=== PATIENT | male | born 1965 | race Caucasian/White ===

== ENCOUNTER 2021-03-25 08:01 | Inpatient (IN) | payer OTHER ==
[2021-03-25] MEDS ORDERED: SODIUM CHLORIDE 0.9% 500 ML INFUS.BAG IV ONE ×2 (08:32→09:33)
[2021-03-25 08:56] LABS: HEMATOCRIT 51.6 % (35.4-49); HEMOGLOBIN 17.8 GM/dL (11.7-16.9); MCH 31.7 pg (25.7-33.7); MCHC 34.5 g/dl (32.0-35.9); MEAN CELL VOLUME 91.8 fl (80-96); MEAN PLT VOLUME 7.9 fl (7.5-11.1); PLATELET COUNT 230 10^3/uL (134-434); RBC 5.62 M/mm3 (4.00-5.60); RDW 13.1 % (11.9-15.9); WHITE BLOOD COUNT 14.3 K/mm3 (4.0-10.0)
[2021-03-25 09:17] LABS: CALCIUM 8.3 mg/dL (8.5-10.1)
[2021-03-25 09:18] LABS: ALBUMIN 3.7 g/dl (3.4-5.0); BLOOD UREA NITROGEN 45.7 mg/dL (7-18); MAGNESIUM 1.9 mg/dL (1.8-2.4)
[2021-03-25 09:21] LABS: CREATININE 3.5 mg/dL (0.55-1.3)
[2021-03-25 09:23] LABS: BILIRUBIN,TOTAL 0.8 mg/dL (0.2-1); TOT PROT 8.6 g/dl (6.4-8.2)
[2021-03-25 11:04] LABS: ANISOCYTOSIS 1+; MACROCYTOSIS 0; PLATELET ESTIMATE NORMAL; TEAR DROP CELLS 1+
[2021-03-25 11:57] LABS: EPI CELLS 14 /uL (0-25.1); HYALINE CASTS 13 /uL (0-3.1); PH,URINE 5.5 (5.0-8.0); URINE APPEARANCE CLEAR; URINE BACTERIA 11 /uL (0-1359); URINE BILIRUBIN NEGATIVE (NEGATIVE); URINE COLOR YELLOW; URINE GLUCOSE (UA) NEGATIVE (NEGATIVE); URINE KETONE NEGATIVE (NEGATIVE); URINE LEUK ESTERASE NEGATIVE (NEGATIVE); URINE NITRITE NEGATIVE (NEGATIVE); URINE PROTEIN 1+ (NEGATIVE); URINE RBC 21 /uL (0-23.9); URINE UROBILINOGEN 0.2 mg/dL (0.2-1.0); URINE WBC 12 /uL (0-25.8)
[2021-03-25] MEDS ORDERED: SODIUM CHLORIDE 500 ML IV STA (12:09)
[2021-03-25] MEDS ORDERED: SODIUM CHLORIDE 1,000 ML IV STA (12:23)
[2021-03-25] MEDS ORDERED: ONDANSETRON 4 MG/2 ML VIAL IVPUSH PRN (12:39)
[2021-03-25] MEDS: SODIUM CHLORIDE 1,000 ML IV SCH ×2 (13:10→19:56)
[2021-03-25] MEDS ORDERED: HEPARIN NA (PORCINE) 5,000 UNITS/ML 1ML VIAL ONE (15:02)
[2021-03-25] MEDS: HEPARIN NA (PORCINE) 5,000 UNITS/ML 1ML VIAL SQ SCH ×2 (15:06→21:10)
[2021-03-25 15:50] VITALS: BMI 28.8
[2021-03-25 17:50] LABS: HEMOGLOBIN 15.3 GM/dL (11.7-16.9); MCH 32.6 pg (25.7-33.7); MCHC 35.6 g/dl (32.0-35.9); MEAN CELL VOLUME 91.7 fl (80-96); MEAN PLT VOLUME 8.5 fl (7.5-11.1); PLATELET COUNT 190 10^3/uL (134-434); RBC 4.68 M/mm3 (4.00-5.60); WHITE BLOOD COUNT 9.3 K/mm3 (4.0-10.0)
[2021-03-25 18:17] LABS: BLOOD UREA NITROGEN 32.9 mg/dL (7-18); CALCIUM 7.5 mg/dL (8.5-10.1)
[2021-03-25 18:21] LABS: CREATININE 1.6 mg/dL (0.55-1.3)
[2021-03-25] MEDS ORDERED: POTASSIUM CHLORIDE ORAL LIQUID 20 MEQ/15 ML PO ONE (18:39)
[2021-03-25] MEDS: ACETAMINOPHEN 325 MG TABLET (FP) PO PRN (19:55)
[2021-03-25] MEDS ORDERED: LOPERAMIDE HCL 2 MG CAPSULE PO ONE (20:38)
[2021-03-26] MEDS: ACETAMINOPHEN 325 MG TABLET (FP) PO PRN ×2 (05:34→20:49)
[2021-03-26] MEDS: SODIUM CHLORIDE 1,000 ML IV SCH ×3 (06:24→23:02)
[2021-03-26] MEDS: HEPARIN NA (PORCINE) 5,000 UNITS/ML 1ML VIAL SQ SCH ×2 (06:24→14:28)
[2021-03-26 06:49] LABS: ALBUMIN 3.1 g/dl (3.4-5.0); BLOOD UREA NITROGEN 18.2 mg/dL (7-18); CALCIUM 8.1 mg/dL (8.5-10.1); MAGNESIUM 1.9 mg/dL (1.8-2.4)
[2021-03-26 06:52] LABS: CREATININE 1.1 mg/dL (0.55-1.3); PHOSPHOROUS 1.5 mg/dL (2.5-4.9)
[2021-03-26 06:54] LABS: BILIRUBIN,TOTAL 1.3 mg/dL (0.2-1)
[2021-03-26 06:56] LABS: TOT PROT 7.5 g/dl (6.4-8.2)
[2021-03-26 07:24] LABS: HEMATOCRIT 46.9 % (35.4-49); HEMOGLOBIN 16.7 GM/dL (11.7-16.9); MCH 32.5 pg (25.7-33.7); MCHC 35.6 g/dl (32.0-35.9); MEAN CELL VOLUME 91.4 fl (80-96); MEAN PLT VOLUME 8.7 fl (7.5-11.1); PLATELET COUNT 175 10^3/uL (134-434); RBC 5.13 M/mm3 (4.00-5.60); RDW 13.3 % (11.9-15.9); WHITE BLOOD COUNT 8.4 K/mm3 (4.0-10.0)
[2021-03-26] MEDS ORDERED: NAPH,MB-DB/K PH,MBDB POWDER PACKET PO SCH (07:30)
[2021-03-26 07:43] LABS: HIV INTERPRETATION NEGATIVE (NEGATIVE)
[2021-03-26] MEDS ORDERED: POTASSIUM PHOSPHATE 30 MM in SODIUM CHLORIDE 500 ML IVPB ONE (10:00)
[2021-03-26 14:57] LABS: ANISOCYTOSIS 1+; MACROCYTOSIS 0; OVALOCYTE 1+; PLATELET ESTIMATE NORMAL
[2021-03-26] MEDS: MELATONIN 5 MG TABLETS PO PRN (20:49)
[2021-03-27 10:01] LABS: HEMATOCRIT 41.1 % (35.4-49); HEMOGLOBIN 14.8 GM/dL (11.7-16.9); MCH 32.7 pg (25.7-33.7); MEAN CELL VOLUME 91.1 fl (80-96); MEAN PLT VOLUME 8.2 fl (7.5-11.1); PLATELET COUNT 162 10^3/uL (134-434); RBC 4.51 M/mm3 (4.00-5.60); RDW 13.2 % (11.9-15.9); WHITE BLOOD COUNT 10.1 K/mm3 (4.0-10.0)
[2021-03-27 10:22] LABS: CHLORIDE 108 mmol/L (98-107); SODIUM 138 mmol/L (136-145)
[2021-03-27 10:25] LABS: ANION GAP 6 MMOL/L (8-16); BLOOD UREA NITROGEN 11.5 mg/dL (7-18); CALCIUM 7.5 mg/dL (8.5-10.1); CO2 23 mmol/L (21-32); GLUCOSE,RANDOM 131 mg/dL (74-106)
[2021-03-27 10:28] LABS: CREATININE 0.8 mg/dL (0.55-1.3)
[2021-03-27 10:43] LABS: ANISOCYTOSIS 1+; MACROCYTOSIS 0; PLATELET ESTIMATE NORMAL
[2021-03-27 10:50] LABS: PHOSPHOROUS 1.1 mg/dL (2.5-4.9)
[2021-03-27] MEDS: ACETAMINOPHEN 325 MG TABLET (FP) PO PRN ×2 (11:48→22:17)
[2021-03-27] MEDS ORDERED: POTASSIUM PHOSPHATE 30 MM in SODIUM CHLORIDE 500 ML IVPB ONE (12:00)
[2021-03-27] MEDS: SODIUM CHLORIDE 1,000 ML IV SCH ×2 (12:15→21:20)
[2021-03-27] MEDS: MELATONIN 5 MG TABLETS PO PRN (21:20)
[2021-03-28] MEDS: SODIUM CHLORIDE 1,000 ML IV SCH ×4 (06:29→19:30)
[2021-03-28 08:04] LABS: HEMATOCRIT 42.6 % (35.4-49); HEMOGLOBIN 15.1 GM/dL (11.7-16.9); MCH 32.4 pg (25.7-33.7); MCHC 35.4 g/dl (32.0-35.9); MEAN CELL VOLUME 91.7 fl (80-96); MEAN PLT VOLUME 8.7 fl (7.5-11.1); PLATELET COUNT 166 10^3/uL (134-434); RBC 4.64 M/mm3 (4.00-5.60); RDW 13.6 % (11.9-15.9); WHITE BLOOD COUNT 11.6 K/mm3 (4.0-10.0)
[2021-03-28 08:21] LABS: BLOOD UREA NITROGEN 8.7 mg/dL (7-18); CALCIUM 7.7 mg/dL (8.5-10.1)
[2021-03-28 08:24] LABS: CREATININE 0.7 mg/dL (0.55-1.3); PHOSPHOROUS 2.4 mg/dL (2.5-4.9)
[2021-03-28] MEDS ORDERED: POTASSIUM PHOSPHATE 30 MM in SODIUM CHLORIDE 500 ML IVPB ONE ×2 (10:00→12:00)
[2021-03-28] MEDS ORDERED: POTASSIUM CHLORIDE TABS 20 MEQ TABLET.ER (FP) PO ONE (11:30)
[2021-03-28] MEDS ORDERED: NAPH,MB-DB/K PH,MBDB POWDER PACKET PO ONE (13:00)
[2021-03-28] MEDS: ACETAMINOPHEN 325 MG TABLET (FP) PO PRN (21:49)
[2021-03-28] MEDS: MELATONIN 5 MG TABLETS PO PRN (21:50)
[2021-03-29 01:28] VITALS: TEMP 98.8
[2021-03-29] MEDS: SODIUM CHLORIDE 1,000 ML IV SCH (02:40)
[2021-03-29 07:42] VITALS: BP 134/72; PULSE 81
[2021-03-29 08:23] LABS: HEMATOCRIT 37.8 % (35.4-49); HEMOGLOBIN 13.3 GM/dL (11.7-16.9); MCH 32.5 pg (25.7-33.7); MCHC 35.1 g/dl (32.0-35.9); MEAN CELL VOLUME 92.4 fl (80-96); MEAN PLT VOLUME 8.7 fl (7.5-11.1); PLATELET COUNT 175 10^3/uL (134-434); RBC 4.09 M/mm3 (4.00-5.60); RDW 13.2 % (11.9-15.9); WHITE BLOOD COUNT 10.2 K/mm3 (4.0-10.0)
[2021-03-29 08:31] LABS: CALCIUM 7.5 mg/dL (8.5-10.1)
[2021-03-29 08:32] LABS: BLOOD UREA NITROGEN 7.7 mg/dL (7-18); MAGNESIUM 1.9 mg/dL (1.8-2.4)
[2021-03-29 08:35] LABS: CREATININE 0.6 mg/dL (0.55-1.3); PHOSPHOROUS 2.6 mg/dL (2.5-4.9)
== END 2021-03-29 15:51 | disposition home or self-care (01) | DRG 469 ==
LOC: JER 08:01 → JERBED 11:32 → J7W 15:28
PROVIDERS: ADMIT Internal Medicine; ATTEND Internal Medicine
DX: N17.9 Acute kidney failure, unspecified (principal); A09 Infectious gastroenteritis and colitis, unspecified; E87.1 Hypo-osmolality and hyponatremia; K62.5 Hemorrhage of anus and rectum; E86.0 Dehydration; I95.9 Hypotension, unspecified; D72.829 Elevated white blood cell count, unspecified; F17.210 Nicotine dependence, cigarettes, uncomplicated; E83.39 Other disorders of phosphorus metabolism; E87.6 Hypokalemia
CPT/HCPCS: 36415; 71045-TC-FY; 80048; 80053; 81003; 82272; 82570; 83036; 83735; 84100; 84156; 84300; 84443; 85025; 85027; 86140; 87040; 87045; 87046; 87205; 87324; 87389; 87449; 87798; 88300-TC; 93005; 93010; 99285-25; C9803; J1644; U0003; U0005

== ENCOUNTER 2024-04-14 06:41 | Emergency (ER) | payer OTHER ==
[2024-04-14 06:55] VITALS: BP 128/94; PULSE 86; RESP 17; TEMP 97.9; BMI 29.0
== END 2024-04-14 08:24 | disposition home or self-care (01) ==
LOC: JER 06:41
DX: H92.01 Otalgia, right ear (principal)
CPT/HCPCS: 99283-25